=== PATIENT | female | born 1990 | race African-American/Black ===

== ENCOUNTER 2024-07-07 08:32 | Emergency (ER) | payer BC ==
[2024-07-07] MEDS ORDERED: Sodium Chloride 0.9% 1,000 ML ONE (08:49)
[2024-07-07] MEDS ORDERED: Metoclopramide HCl 10 MG (2 mL) VIAL ONE (08:49)
[2024-07-07] MEDS ORDERED: Sodium Chloride 0.9% 50 ML ONE (08:49)
[2024-07-07] MEDS ORDERED: diphenhydrAMINE 50 MG/ML VIAL ONE (08:49)
[2024-07-07] MEDS ORDERED: Ketorolac Tromethamine 30 MG (1 mL) VIAL ONE (08:49)
[2024-07-07 09:32] LABS: #Basophils 0.1 thou/uL (0.0-0.2); #Lymphocytes 1.6 thou/uL (1.20-3.40); #Monocytes 0.3 thou/uL (0.11-0.59); #Neutrophils 2.9 thou/uL (1.40-6.50); %Basophils 1.1 % (0.0-1.0); %Eosinophils 0.9 % (0.0-10.0); %Lymphocytes 33.7 % (21.0-51.0); %Monocytes 5.1 % (0.0-10.0); %Neutrophils 59.2 % (42.0-75.0); Hematocrit 47.7 % (36.0-47.0); Hemoglobin 14.4 g/dL (12.0-16.0); Mean Corpuscular HGB CONC 30.2 g/dL (32.0-36.0); Mean Corpuscular Hemoglobin 26.1 pg (27.0-31.0); Mean Corpuscular Volume 86.6 fl (78.0-98.0); Mean Platelet Volume 9.1 fL (7.4-10.4); Platelet Count 242 10x3/uL (130-400); RBC Distribution Width 12.4 % (11.5-14.5); Red Blood Cell (RBC) Count 5.51 mill/uL (4.20-5.40); White Blood Cell (WBC) Count 4.9 10x3/uL (4.8-10.8)
[2024-07-07 09:42] LABS: Acetaminophen Less than 10 mcg/mL (Less than 10); Alcohol Less than 10.0 mg/dL (Less than 10); Salicylate Less than 8.0 mg/dL (Less than 8.0)
[2024-07-07 09:44] LABS: ALT (SGPT) 12 U/L (8-55); AST (SGOT) 17 U/L (5-34); Albumin 4.3 g/dL (3.5-5.0); Alkaline Phosphatase 80 U/L (40-110); Anion Gap 16 mmol/L (10-20); BUN (Urea Nitrogen) 10 mg/dL (7.0-18.7); Bilirubin, Total 0.3 mg/dL (0.2-1.2); Calc. Creatinine Clearance 0 mL/min (70-130); Calcium 8.9 mg/dL (7.8-10.44); Carbon Dioxide 21 mmol/L (22-29); Chloride 105 mmol/L (98-107); Estimated GFR 105; Globulin 3.2 g/dL (2.4-3.5); Glucose 144 mg/dL (70-105); Potassium 3.4 mmol/L (3.5-5.1); Protein, Total 7.5 g/dL (6.0-8.3); Sodium 139 mmol/L (136-145)
[2024-07-07 10:10] LABS: Bilirubin Negative (Negative); Blood, Urine Trace (Negative); Clarity Clear (Clear); Glucose, Urine (Dipstick) Negative (Negative); Ketone, Urine Negative (Negative); Leukocyte Negative (Negative); Nitrite Negative (Negative); Pregnancy Test - Urine (BHCG) Negative (Negative); Pregu Control Background? CLEAR/WHITE (CLR/WHITE); Pregu Control Bar Appear? YES (CONTROL BAR); Protein, Urine (Dipstick) Trace mg/dL (Neg-Trace); Urobilinogen 0.2 mg/dL (Less than 2)
[2024-07-07 10:22] LABS: Bacteria/HPF Rare-Few HPF (None Seen); CAUTI Indications for Culture Alt mental st,lethar; RBC/HPF None Seen HPF (0-3); WBC/HPF 0-3 HPF (0-3)
[2024-07-07 10:23] LABS: Urine Culture Reflex No No
[2024-07-07] MEDS ORDERED: SUMAtriptan Succinate 6 MG/0.5 ML VIAL ONE (11:16)
== END 2024-07-07 11:55 | disposition home or self-care (01) ==
LOC: MADERS 08:32
DX: R51.9 Headache, unspecified (principal)
CPT/HCPCS: 70450; 80053; 80307; 81001; 81025; 85025; 96365; 96372; 96375; J1200; J1885; J2765; J3030; J7030

== ENCOUNTER 2024-08-02 13:26 | Emergency (ER) | payer BC ==
[2024-08-02] MEDS ORDERED: Ketorolac Tromethamine 30 MG (1 mL) VIAL ONE ×2 (14:20→16:11)
[2024-08-02] MEDS ORDERED: Magnesium 2 GM/50 ML BAG (IN WATER) ONE (14:20)
[2024-08-02] MEDS ORDERED: Sodium Chloride 0.9% 50 ML ONE (14:20)
[2024-08-02] MEDS ORDERED: Sodium Chloride 0.9% 1,000 ML ONE (14:20)
[2024-08-02] MEDS ORDERED: diphenhydrAMINE 50 MG/ML VIAL ONE (14:20)
[2024-08-02] MEDS ORDERED: Dexamethasone 10 MG/ML VIAL ONE (14:20)
[2024-08-02] MEDS ORDERED: Metoclopramide HCl 10 MG (2 mL) VIAL ONE (14:21)
[2024-08-02 14:57] LABS: #Basophils 0.1 thou/uL (0.0-0.2); #Lymphocytes 1.4 thou/uL (1.20-3.40); #Monocytes 0.3 thou/uL (0.11-0.59); #Neutrophils 3.2 thou/uL (1.40-6.50); %Basophils 1.1 % (0.0-1.0); %Eosinophils 0.6 % (0.0-10.0); %Lymphocytes 28.6 % (21.0-51.0); %Monocytes 5.3 % (0.0-10.0); %Neutrophils 64.5 % (42.0-75.0); Hematocrit 41.5 % (36.0-47.0); Hemoglobin 12.8 g/dL (12.0-16.0); Mean Corpuscular HGB CONC 30.8 g/dL (32.0-36.0); Mean Corpuscular Hemoglobin 26.7 pg (27.0-31.0); Mean Corpuscular Volume 86.8 fl (78.0-98.0); Mean Platelet Volume 8.4 fL (7.4-10.4); Platelet Count 240 10x3/uL (130-400); RBC Distribution Width 12.8 % (11.5-14.5); Red Blood Cell (RBC) Count 4.78 mill/uL (4.20-5.40); White Blood Cell (WBC) Count 4.9 10x3/uL (4.8-10.8)
[2024-08-02 15:06] LABS: BHCG - Serum Negative (NEGATIVE); Pregs Control Background? CLEAR/WHITE (CLR/WHITE); Pregs Control Bar Appear? YES (CONTROL BAR)
[2024-08-02 15:17] LABS: ALT (SGPT) 18 U/L (8-55); AST (SGOT) 18 U/L (5-34); Albumin 4.1 g/dL (3.5-5.0); Alkaline Phosphatase 66 U/L (40-110); Anion Gap 9 mmol/L (10-20); BUN (Urea Nitrogen) 9 mg/dL (7.0-18.7); Bilirubin, Total 0.4 mg/dL (0.2-1.2); Calc. Creatinine Clearance 0 mL/min (70-130); Calcium 8.5 mg/dL (7.8-10.44); Carbon Dioxide 25 mmol/L (22-29); Chloride 103 mmol/L (98-107); Estimated GFR 117; Globulin 3.2 g/dL (2.4-3.5); Glucose 115 mg/dL (70-105); Potassium 3.2 mmol/L (3.5-5.1); Protein, Total 7.3 g/dL (6.0-8.3); Sodium 134 mmol/L (136-145)
[2024-08-02] MEDS ORDERED: hydrALAZINE 20 MG/ML VIAL ONE (16:11)
== END 2024-08-02 17:20 | disposition home or self-care (01) ==
LOC: MADERS 13:26
DX: R51.9 Headache, unspecified (principal); I10 Essential (primary) hypertension
CPT/HCPCS: 80053; 84703; 85025; 96361; 96374; 96375; 96376; J0360; J1100; J1200; J1885; J2765; J3475; J7030